=== PATIENT | male | born 1945 | race Hispanic/Latino ===

== ENCOUNTER → 2017-09-06 | Outpatient (CLI) | payer OTHER | END | disposition home or self-care (01) | LOC: OIH 11:45 | PROVIDERS: ATTEND Family Medicine | DX: M17.11 Unilateral primary osteoarthritis, right knee (principal); M85.88 Other specified disorders of bone density and structure, other site; M25.461 Effusion, right knee; J44.9 Chronic obstructive pulmonary disease, unspecified; I10 Essential (primary) hypertension; I51.7 Cardiomegaly; M81.8 Other osteoporosis without current pathological fracture | CPT/HCPCS: 71046; 73560 ==

== ENCOUNTER → 2018-10-10 | Outpatient (CLI) | payer OTHER | END | disposition home or self-care (01) | LOC: OIH 08:56 | PROVIDERS: ATTEND Family Medicine | DX: M11.212 Other chondrocalcinosis, left shoulder (principal); M19.012 Primary osteoarthritis, left shoulder | CPT/HCPCS: 73560 ==